=== PATIENT | female | born 1985 | race Caucasian/White ===

== ENCOUNTER → 2017-12-03 09:43 | Outpatient (CLI) | payer MEDICAID, SELFPAY ==
--- NOTE | 2017-12-03 09:48 | MRI_ITS ---
STUDY: MRI RIGHT KNEE REASON FOR EXAM: Knee pain, patellar instability. TECHNIQUE: Standardized fat and water weighted pulse sequences were obtained in all 3 orthogonal planes. COMPARISON: Radiographs 08/24/2017. FINDINGS: Normal medial meniscus. Normal hyaline cartilage of the medial femorotibial compartment. Normal medial femoral condyle and tibial plateau. Normal medial collateral ligamentous complex (MCL). Normal distal semimembranosus, gracilis and semitendinosus tendons. Normal lateral meniscus. Normal hyaline cartilage of the lateral femorotibial compartment. Normal lateral femoral condyle and tibial plateau. Normal proximal tibiofibular articulation. Normal lateral collateral (fibular) ligament. Normal popliteus tendon. Normal biceps femoris tendon. Normal anterior cruciate ligament (ACL). Normal posterior cruciate ligament (PCL). There is mild lateral subluxation of the patella (T2 axial image 10). There is low-grade chondromalacia patellae (T2 axial image 7). Normal medial and lateral patellar retinaculum. Normal visualized quadriceps tendon. There are postoperative changes from patellar realignment. Normal Hoffa's fat pad. There is a minimal volume of fluid in the knee joint. The soft tissues are unremarkable. The otherwise visualized osseous structures are unremarkable. MRI/Lower Ext Joint Only (Routine) IMPRESSION: Low-grade chondromalacia patellae. Mild lateral subluxation of the patella. Postoperative changes from patellar realignment. Electronically Signed: Shakeel Padilla MD at 11:25 EDT Tel , Service support ,
== END ==
PROVIDERS: Family Provider Family Medicine; PCP Family Medicine; Visit Provider Orthopaedic Surgery
DX: M22.41 Chondromalacia patellae, right knee (principal); M25.361 Other instability, right knee
CPT/HCPCS: 73721

== ENCOUNTER 2018-03-19 05:47 | Day surgery (SDC) | payer MEDICAID, SELFPAY ==
[2018-03-19] VITALS (8 sets, daily range): BP systolic 100–128; BP diastolic 55–78; PULSE 62–87; RESP 16; TEMP 36.1–37.2; O2SAT 93–100; BMI 38.3
[2018-03-19 06:25] LABS: Internal QC Validated? YES +Cl - CLEAR BKGD; Pregnancy, Urine Negative Negative
--- NOTE | 2018-03-19 07:10 | RAD_ITS ---
STUDY: X-RAY - RIGHT KNEE REASON FOR EXAM: Female, 32 years old. Intraoperative digital documentation images of patellofemoral chondroplasty. TECHNIQUE: 3 intraoperative digital documentation view(s) of the knee. COMPARISON: August 24, 2017 FINDINGS: 3 intraoperative digital documentation images show placement of 2 osteotomies within the patella. Multiple instruments are noted. RAD/Knee 1 or 2 Views IMPRESSION: Intraoperative digital documentation images as described. Electronically Signed: Reece Seymour MD at 10:28 EDT , Service support ,
[2018-03-19] MEDS: Cefazolin 2 GM in 0.9% Normal Saline 100 ML IV (07:11)
[2018-03-19] MEDS: Mupirocin Ointment 22gm Tube 1 APPLIC (08:55)
[2018-03-19] MEDS: Bupivacaine 0.25% 30 ML Vial (09:03)
--- NOTE | 2018-03-19 09:08 | PCM.DC.ORTHO ---
Discharge Diet: No Restrictions - Remove dressings postop day 4 and apply Band-Aids to incision sites, may get incision wet after 4-5 days as long as no drainage, elevate ice toe pumps ankle pumps, weight-bear as tolerated with knee locked in brace, may flex knee 0-40 while seated, follow-up in 2 weeks, call with concerns Discharge Activity: May Not Drive May shower in (days): 1 Ice area for (Minutes): 20 - Every hour while awake. Weight Bearing Status: Weight bearing as tolerated Keep extremity elevated above heart level: Operative Extremity Call your doctor if your incision/area has: Continuous Slow Oozing, Sudden Increased Bleeding, Increased Pain/ Swelling, Increased Redness, Foul Smelling Discharge Call your doctor if you observe: Fever of 101 or Higher, Coldness, Increased Pain, Numbness or Tingling, Change in Color, Calf discomfort Allergies/Adverse Reactions: Allergies latex Allergy (Verified 03/12/18 11:37) Rash NSAIDS (Non-Steroidal Anti-Inflamma Allergy (Verified 03/12/18 11:11) Hives prednisone Allergy (Verified 03/12/18 11:11) Shortness of breath cyclobenzaprine HCl [From Flexeril] Adverse Reaction (Verified 03/12/18 11:11) Other DE LA O, ANTSY ibuprofen [From Motrin] Adverse Reaction (Verified 03/12/18 11:11) Rash metoclopramide HCl [From Reglan] Adverse Reaction (Verified 03/12/18 11:11) Other LEGS SHAKE, FEELS LIKE THEY ARE ON FIRE red dye Adverse Reaction (Verified 03/12/18 11:11) Other sumatriptan [From Imitrex] Adverse Reaction (Verified 03/12/18 11:11) Other sumatriptan succinate [From Imitrex] Adverse Reaction (Verified 03/12/18 11:11) Other tramadol HCl [From Ultram] Adverse Reaction (Verified 03/12/18 11:11) Other BAND AIDS Allergy (Uncoded 03/12/18 11:11) Rash Medications to take at Discharge Cetirizine HCl [Zyrtec] 10 mg PO DAILY 04/12/14 Sertraline HCl [Zoloft] 100 mg PO DAILY 04/12/14 Topiramate [Topamax] 100 mg PO BID 04/12/14 Albuterol Inhaler [Ventolin Hfa (SP)] 1 - 2 puff INHALATION Q4H PRN PRN 03/12/18 Ibuprofen 800 mg PO TID PRN 03/12/18 Montelukast [Singulair] 10 mg PO DAILY 03/12/18 Hydrocodone/Acetaminophen [[place] 5-325 Tablet] 1 each PO Q6H PRN PRN 5 Days #42 tablet 03/19/18 Ondansetron [Zofran] 8 mg PO Q8H PRN PRN #20 tab 03/19/18 The following prescriptions were given: Hydrocodone/Acetaminophen [[place] 5-325 Tablet] 1 each PO Q6H PRN PRN 5 Days #42 tablet PRN Reason: Pain Ondansetron [Zofran] 8 mg PO Q8H PRN PRN #20 tab PRN Reason: Nausea Primary Care Physician: Jany Mckenna MD [Primary Care Provider] - Test Results: Test results from this visit will be discussed in further detail at your follow-up appointment, if applicable. Please Follow Up With: Madison Madrigal, - [phone]
--- NOTE | 2018-03-19 09:23 | OP.PCM_ITS ---
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 However this is not sustained alignment of her patella as she is gotten older and has gained some weight. Patient has had recurrent subluxation events and failed conservative treatment. MRI confirms lateral patella subluxation patellofemoral chondromalacia. Risks benefits and alternatives surgery discussed with patient. Risks including but not limited to blood loss, blood clot, infection, neurovascular injury, failure procedure, loss of life and loss of limb. Patient is aware like proceed with right knee arthroscopy patellofemoral chondroplasty repair is indicated NPFL reconstructed with allograft Gagnon. Next Operative note Patient seen and examined preoperative holding area. Right knee was marked. Patient was brought to the operating room placed supine the operating table. Signing, anesthesia, antibiotics were administered. All bony possible padded and SCDs placed on her long talk contralateral limb. We checked her subluxation of her patella and she was quite loose laterally and I was able to dislocate her preoperatively. The right leg was then prepped and draped in usual usual sterile fashion with a tourniquet around her upper thigh. Timeout was performed. Her than leg was then elevated exsanguinated and tourniquet was raised her pressure 300 torr. We then created our anterolateral portal with an 11 blade. We may able to visualize patellofemoral joint. She had grade 2 fibrillated changes on the lateral aspect of her patella. Then created an anterior medial portal under direct visualization. The inserted probed the medial meniscus was intact and stable probing her medial femoral condyle medial tibial plateau plateau were intact stable, to probing. Her ACL PCL were present within the notch. Her lateral meniscus was intact and stable probing. Her lateral femoral condyle was intact stated probing she had grade 1 2 fibrillated changes on the central aspect of her lateral tibial plateau. We then inserted a shaver and shaved back the unstable pieces of the lateral tibial plateau as well as of the undersurface of the patella and the lateral facet. Then began our patellofemoral reconstruction. We use a radiolucent triangle were able to get an AP of the knee. We start with a 15 blade and on the superior medial aspect of the patella and dissected down to the lateral border of the patella we dissected down to bone. We then were able to drive our 2.0 guidewires about 5 mm to 6 mm from the superior medial border and then the second was about 12 mm distal to the initial and parallel fashion was checked in both AP and lateral planes good position of the guidewires which we did have. We then over drilled with a 4 5 drilled to about 25 we then were able to we have prepared the gracilis allograft in the back table in standard fashion. These were placed with our standard anchors into the patella and ensuring that we had tissue the ends of the graft into the bone which we did have. We then dissected down between the second and third layer and then were able to dissect out to the medial femoral cortex. We then use our guide for the appropriate insertion of the NPFL on the medial distal femoral cortex. We drilled about 30? cephalad in order to avoid the notch. Placed our Beath pin through we then shuttled the graft there are second and third terrazzo layer helper to be dependent and then overdrilled the Beath pin in standard technique. Then pulled the Beath pin I am sorry we then links the ends of the suture into the Beath pin and pulled out the lateral cortex. The graft at that point sunk into the previously drilled hole. Please note the also have placed our Nitinol wire prior to this. With the knee was about flexion about 30? of flexion we ascertained our tightness and measuring the lateral border of the patella with the lateral border of the femoral cortex. We then flex and extend the knee ensure that we had good excursion of the patella and then did not over tighten and she was able to have full range of motion which which she did have. We then placed our 8 x 20 mm screw and maintain traction on the tendons at that time please note that prior to placing our bio composite interference screw we did check to make sure that the stitch the passing stitch was extra articular which it was. We then visualize intra-articularly tracking of the patellofemoral joint which was intact it was much more medialized and centralized on the trochlea. We then irrigated the knee with copious amounts of sterile saline. The portals were closed with interrupted 4-0 nylon the patella incision was closed with and we used the stitches from the anchors and then closed over her VMO and tightened it down and then closed the subcuticular layer with 3 to 3-0 Vicryl and the skin with 4-0 nylon. We then placed subcu tissue subcuticular to 2-0 Vicryl in the lateral and the story and the medial femoral cortex incision and then nylon to close the skin. Sterile dressings were applied and a locked brace in extension was applied to the right knee. Patient was transferred to recovery room in stable condition there were no complications. Patient tolerated procedure well. Postoperative note Weight-bear as tolerated with knee locked in extension May range of motion 0-40 well seated Call with increased pain numbness tingling further issues arise Hospital pharmacy has prescriptions Follow-up in 2 weeks This note was generated with [employer] dictation software. It may contain incorrect words, spelling, and punctuation that were not noted in checking the note before signing.
== END 2018-03-19 13:37 | disposition home or self-care (01) ==
LOC: SDC 05:47 → AC 05:48
PROVIDERS: Anesthesiology; Family Provider Family Medicine; PCP Family Medicine; Visit Provider Orthopaedic Surgery
PROC: (CPT 27427; principal; 2018-03-19 06:50)
DX: M22.11 Recurrent subluxation of patella, right knee (principal); M94.261 Chondromalacia, right knee; M25.361 Other instability, right knee; J45.909 Unspecified asthma, uncomplicated; F32.9 Major depressive disorder, single episode, unspecified; F41.9 Anxiety disorder, unspecified; G43.909 Migraine, unspecified, not intractable, without status migrainosus; I27.20 Pulmonary hypertension, unspecified; Z79.899 Other long term (current) drug therapy
CPT/HCPCS: 27422; 29877; 64445; 73560; 76000; 81025; C1713; J7120; A4216; J2405

== ENCOUNTER → 2018-04-15 10:06 | Outpatient (CLI) | payer MEDICAID, SELFPAY | PROVIDERS: Family Provider Family Medicine; PCP Family Medicine; Visit Provider Physician Assistant | DX: M25.561 Pain in right knee (principal) | CPT/HCPCS: 73564 ==

== ENCOUNTER → 2019-09-15 15:17 | Outpatient (CLI) | payer MEDICAID, SELFPAY ==
[2019-09-15 15:14] VITALS: BMI 36.0
--- NOTE | 2019-09-15 15:18 | RAD_ITS ---
STUDY: X-RAY - RIGHT WRIST REASON FOR EXAM: Pain. TECHNIQUE: 3 view(s) of the wrist were obtained. COMPARISON: None. FINDINGS: Normal visualized distal radius and ulna. Normal radiocarpal articulation. Normal distal radioulnar articulation. There is a subchondral cyst in the distal pole of the scaphoid. Normal carpal articulations. Normal carpometacarpal articulation of the thumb. Normal second through fifth carpometacarpal articulations. Normal visualized metacarpal bones. The soft tissue structures are unremarkable. RAD/Wrist min 3 Views IMPRESSION: Subchondral cyst in the distal pole of the scaphoid. Otherwise, unremarkable x-ray examination of the right wrist. Electronically Signed: Shakeel Padilla MD at 14:02 EST Tel , Service support ,
== END ==
LOC: HPRAD 15:18
PROVIDERS: Referring Provider Orthopaedic Surgery; Visit Provider Orthopaedic Surgery
DX: M25.531 Pain in right wrist (principal)
CPT/HCPCS: 73110

== ENCOUNTER 2019-09-15 15:51 | Outpatient (RCR) | payer MEDICAID, SELFPAY ==
[2019-09-15 15:14] VITALS: BMI 36.0
== END 2019-09-15 19:00 | disposition home or self-care (01) ==
LOC: OT 15:51
PROVIDERS: PCP Family Medicine; Referring Provider Orthopaedic Surgery; Visit Provider Orthopaedic Surgery
DX: R69 Illness, unspecified (principal)

== ENCOUNTER → 2019-11-08 09:49 | Outpatient (CLI) | payer MEDICAID, SELFPAY ==
[2019-10-27 10:33] VITALS: BMI 36.0
--- NOTE | 2019-11-08 09:50 | MRI_ITS ---
STUDY: MRI RIGHT WRIST WITHOUT CONTRAST REASON FOR EXAM: Right wrist pain, pops out of place, tendinitis. TECHNIQUE: Standardized fat and water weighted pulse sequences were obtained in all 3 orthogonal planes. COMPARISON: Radiographs 09/15/2019. FINDINGS: Normal visualized distal radius and ulna. Normal distal radioulnar articulation (DRUJ). Normal triangular fibrocartilaginous complex (TFCC). There is a cyst in the distal pole of the scaphoid measuring 0.4 cm in length with mild adjacent bone edema (inversion recovery coronal images 11, 12). Otherwise, unremarkable carpal bones. Normal radiocarpal, intercarpal and midcarpal articulations. Normal pisotriquetral articulation. Normal visualized interosseous scapholunate ligament. Normal extensor tendons. There is a very small volume of fluid in the distal flexor carpi radialis tendon sheath (inversion recovery axial images 13). There is very mild flexor tenosynovitis proximal to the carpal tunnel (inversion recovery axial images 19, 20). Normal carpal tunnel with a normal median nerve. Normal carpometacarpal articulation of the thumb. Normal second through fifth carpometacarpal articulations. Normal visualized metacarpal bones. There is no demonstrated soft tissue abnormality. MRI/Upper Ext Joint Only(Routine) IMPRESSION: Very mild flexor tenosynovitis. Cyst in the distal pole of the scaphoid with adjacent bone edema. Electronically Signed: Shakeel Padilla MD at 12:03 EDT Tel , Service support ,
== END ==
PROVIDERS: PCP Family Medicine; Referring Provider Orthopaedic Surgery; Visit Provider Orthopaedic Surgery
DX: M77.8 Other enthesopathies, not elsewhere classified (principal)
CPT/HCPCS: 73221